=== PATIENT | male | born 1995 | race African-American/Black ===

== ENCOUNTER 2019-11-29 11:31 | Emergency (ER) | payer SELFPAY | END 2019-11-29 12:45 | disposition home or self-care (01) | LOC: NAV ERS 11:31 | DX: B34.9 Viral infection, unspecified (principal); I10 Essential (primary) hypertension | CPT/HCPCS: 87081; 87430; 87804; 99283 ==

== ENCOUNTER 2020-02-17 10:51 | Emergency (ER) | payer BC ==
--- NOTE | 2020-02-17 13:29 | RAD ---
RIGHT HAND THREE VIEWS: 02/17/20 HISTORY: Injury, punched garage door on Saturday. Fairly markedly displaced angulated and foreshortened fracture of the distal fifth metacarpal with so me volar angulation. Remainder of the hand appears intact. There is soft tissue swelling. IMPRESSION: Volarly angulated displaced and foreshortened fracture distal fifth metacarpal. POS: [facility]
== END 2020-02-17 12:05 | disposition home or self-care (01) ==
LOC: NAV ERS 10:51
DX: S62.336A Displaced fracture of neck of fifth metacarpal bone, right hand, initial encounter for closed fracture (principal); I10 Essential (primary) hypertension; W22.8XXA Striking against or struck by other objects, initial encounter
CPT/HCPCS: 29125